=== PATIENT | male | born 1965 | race African-American/Black ===

== ENCOUNTER 2017-04-01 19:06 | Emergency (ER) | payer BC ==
[~2017-04-01] VITALS: Ht 167.6 cm; Wt 98.4 kg
[~2017-04-01 19:06] MED LIST: AMIO200T2 PO; ASPI-630 PO; CARV12.52 PO; LOSA25TA4 PO; MULT-505 PO; OMEG1CAP38 PO; OXYC-323 PO; SIMV40TA3 PO; SPIR25TA3 PO; WARF7.5T6 PO
[2017-04-01 19:39] LABS: BASO # 0.1 x10^3/uL (0.0-0.2); BASO % 1 % (0-3); EOS % 1 % (0-3); HEMATOCRIT 43.2 % (39.0-53.0); HEMOGLOBIN 14.4 g/dL (13.0-17.5); LYMPH # 2.2 x10^3/uL (1.0-4.8); LYMPH % 26 % (24-48); MEAN CORPUSCULAR HEMOGLOBIN 29 pg (25-35); MEAN CORPUSCULAR HGB CONC 33 g/dL (31-37); MEAN CORPUSCULAR VOLUME 87 fL (79-100); MONO % 12 % (0-9); NEUT % 60 % (31-73); PLATELET COUNT 206 x10^3/uL (140-400); RED BLOOD COUNT 4.96 x10^6/uL (4.30-5.70); RED CELL DISTRIBUTION WIDTH 15.9 % (11.5-14.5); WHITE BLOOD COUNT 8.8 x10^3/uL (4.0-11.0)
[2017-04-01 19:58] LABS: CALCIUM 9.3 mg/dL (8.5-10.1); CREATININE 1.5 mg/dL (0.7-1.3); GFR 59.2; POTASSIUM 4.5 mmol/L (3.5-5.1)
[2017-04-01 20:04] LABS: ALBUMIN 3.7 g/dL (3.4-5.0); ALBUMIN/GLOBULIN RATIO 0.9 (1.0-1.7); MAGNESIUM 2.2 mg/dL (1.8-2.4); TOTAL BILIRUBIN 0.7 mg/dL (0.2-1.0); TOTAL PROTEIN 7.7 g/dL (6.4-8.2)
[2017-04-01] MEDS ORDERED: FURO40TA4 PO (20:04)
[2017-04-01] MEDS ORDERED: SACU1TAB7 PO (20:06)
[2017-04-01 20:13] LABS: CKMB MASS < 0.5 ng/mL (0.0-3.6); CREATINE KINASE 159 U/L (39-308)
--- NOTE | 2017-04-01 20:41 | PHYS DOC ---
Past Medical History Past Medical History: High Cholesterol, Heart Disease, Hypertension Additional Past Medical Histor: "clot in heart wall per pt" Past Surgical History: Other Additional Past Surgical Histo: CABG (5 way) and Defibrillator Alcohol Use: None Drug Use: None Adult General Chief Complaint Chief Complaint: RAPID HEART RATE HPI HPI Patient is a 52 year old male who presents with complaint of rapid heart rate. Patient states that his symptoms started shortly prior to arrival. Patient states that he was taking out a heavy bag of trash when he noticed his heart rate had increased. Patient denies feeling lightheaded or having any associated chest pain. The patient has had history of myocardial infarction in 2007 and had cardiac bypass surgery shortly after his initial myocardial infarction. 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 Patient states that his pacemaker is a Medtronic device. Patient follows with Dr. Greer of cardiology at [facility]. Patient states that currently he feels better at rest. Patient does admit that he took his blood pressure medication shortly prior to onset of symptoms. Review of Systems Review of Systems Constitutional: Denies fever or chills [] Eyes: Denies change in visual acuity, redness, or eye pain [] HENT: Denies nasal congestion or sore throat [] Respiratory: Denies cough or shortness of breath [] Cardiovascular: Palpitations, denies chest pain[] GI: Denies abdominal pain, nausea, vomiting, bloody stools or diarrhea [] : Denies dysuria or hematuria [] Musculoskeletal: Denies back pain or joint pain [] Integument: Denies rash or skin lesions [] Neurologic: Denies headache, focal weakness or sensory changes [] All other systems were reviewed and found to be within normal limits, except as documented in this note. Allergies Allergies Allergies Coded Allergies Type Severity Reaction Last Updated Verified No Known Drug Allergies 11/02/14 No Physical Exam Physical Exam Constitutional: Alert, afebrile, no acute distress. [] HENT: Normocephalic, atraumatic, bilateral external ears normal, oropharynx moist, no oral exudates, nose normal. [] Eyes: PERRLA, EOMI, conjunctiva normal, no discharge. [] Neck: Normal range of motion, no tenderness, supple, no stridor. [] Cardiovascular: Tachycardia, regular rhythm, no murmur [] Lungs & Thorax: Bilateral breath sounds clear to auscultation [] Abdomen: Bowel sounds normal, soft, no tenderness, no masses, no pulsatile masses. [] Skin: Warm, dry, no erythema, no rash. [] Back: No tenderness, no CVA tenderness. [] Extremities: No tenderness, no cyanosis, no clubbing, ROM intact, no edema. [] Neurologic: Alert and oriented X 3, normal motor function, normal sensory function, no focal deficits noted. [] Current Patient Data Vital Signs Vital Signs Date Time Temp Pulse Resp B/P (MAP) Pulse Ox O2 Delivery O2 Flow Rate FiO2 04/01/17 19:10 98.5 121 22 115/55 (75) 100 Room Air 98.5 Lab Values Laboratory Tests Test 04/01/17 19:18 White Blood Count 8.8 x10^3/uL (4.0-11.0) Red Blood Count 4.96 x10^6/uL (4.30-5.70) Hemoglobin 14.4 g/dL (13.0-17.5) Hematocrit 43.2 % (39.0-53.0) Mean Corpuscular Volume 87 fL (79-100) Mean Corpuscular Hemoglobin 29 pg (25-35) Mean Corpuscular Hemoglobin Concent 33 g/dL (31-37) Red Cell Distribution Width 15.9 % (11.5-14.5) H Platelet Count 206 x10^3/uL (140-400) Neutrophils (%) (Auto) 60 % (31-73) Lymphocytes (%) (Auto) 26 % (24-48) Monocytes (%) (Auto) 12 % (0-9) H Eosinophils (%) (Auto) 1 % (0-3) Basophils (%) (Auto) 1 % (0-3) Neutrophils # (Auto) 5.3 x10^3uL (1.8-7.7) Lymphocytes # (Auto) 2.2 x10^3/uL (1.0-4.8) Monocytes # (Auto) 1.1 x10^3/uL (0.0-1.1) Eosinophils # (Auto) 0.1 x10^3/uL (0.0-0.7) Basophils # (Auto) 0.1 x10^3/uL (0.0-0.2) Sodium Level 139 mmol/L (136-145) Potassium Level 4.5 mmol/L (3.5-5.1) Chloride Level 105 mmol/L (98-107) Carbon Dioxide Level 28 mmol/L (21-32) Anion Gap 6 (6-14) Blood Urea Nitrogen 22 mg/dL (8-26) Creatinine 1.5 mg/dL (0.7-1.3) H Estimated GFR (Cockcroft-Gault) 59.2 BUN/Creatinine Ratio 15 (6-20) Glucose Level 96 mg/dL (70-99) Calcium Level 9.3 mg/dL (8.5-10.1) Magnesium Level 2.2 mg/dL (1.8-2.4) Total Bilirubin 0.7 mg/dL (0.2-1.0) Aspartate Amino Transferase (AST) 25 U/L (15-37) Alanine Aminotransferase (ALT) 27 U/L (16-63) Alkaline Phosphatase 57 U/L (46-116) Creatine Kinase 159 U/L (39-308) Creatine Kinase MB (Mass) < 0.5 ng/mL (0.0-3.6) Creatine Kinase MB Relative Index 0.3 % (0-4) Troponin I Quantitative < 0.017 ng/mL (0.000-0.055) HD-Fny-Y-Type Natriuretic Peptide 281 pg/mL (0-124) H Total Protein 7.7 g/dL (6.4-8.2) Albumin 3.7 g/dL (3.4-5.0) Albumin/Globulin Ratio 0.9 (1.0-1.7) L Laboratory Tests 04/01/17 19:18 Laboratory Tests 04/01/17 19:18 EKG EKG Interpreted by me: Heart rate 82, AV paced rhythm, no acute ST elevations[] Radiology/Procedures Radiology/Procedures One view AP chest x-ray interpreted by me: No infiltrates, no effusions, normal cardiac silhouette[] Course & Med Decision Making Course & Med Decision Making Pertinent Labs and Imaging studies reviewed. (See chart for details) The patient's heart rate improved at rest. Patient's pacemaker was interrogated and showed a maximal heart rate of the 143 bpm that recorded no significant cardiac events and no defibrillations. The patient states that he feels that his baseline state of health currently. The patient was ambulated in the emergency department and exhibited any increased heart rate up to 1:30 which improved at rest. The patient's symptoms appear consistent with hypovolemia. Patient remained asymptomatic during this episode. Recommended oral fluids for rehydration as well as rest at home. I spoke with Dr. Rodriguez of cardiology regarding patient's course and findings. He agreed with follow-up tomorrow with patient's electrical repairer and also offered that the patient could follow-up in his office if he had any difficulty securing an appointment tomorrow. Spoke with patient and patient's family regarding findings and plan of care and they were in agreement upon discharge. Advised return emergency department for any worsening symptoms. Dragon Disclaimer Dragon Disclaimer This electronic medical record was generated, in whole or in part, using a voice recognition dictation system. Departure Departure Impression: Primary Impression: Tachycardia, paroxysmal Additional Impression: Hypovolemia Disposition: 01 HOME, SELF-CARE Condition: IMPROVED Referrals: OLIVER PAZ (PCP) JEREMIAH RODRIGUEZ MD Patient Instructions: Dehydration, Adult, Palpitations Additional Instructions: Follow-up with your electrical repairer tomorrow for reevaluation. Be sure to drink plenty of fluids and do not exert herself until you have followed up with her electrical repairer for reevaluation. If you have any difficulty making an appointment with your electrical repairer, you may call the office of Dr. Rodriguez to make a follow -up appointment. Return to the emergency department for any worsening symptoms. Problem Qualifiers EUGENE RAO MD Apr 01, 2017 20:41
[2017-04-01 20:58] VITALS: BP 103/58
--- NOTE | 2017-04-02 00:55 | EKG ---
[facility] [address] [place] [address] Test Date: 2017-04-01 Test Time: 19:19:25 Pat Name: MITESH REBOLLAR Department: Room: Gender: M Java Designer: : 1965 Requested By: EUGENE RAO Order Number: [id number] Reading MD: Lauro Glover Measurements Intervals [place] Rate: 82 P: -84 [place]: 162 QRS: -81 QRSD: 210 T: 90 QT: 438 QTc: 515 Interpretive Statements SINUS RHYTHM LEFT ATRIAL ABNORMALITY ABNORMAL LEFT AXIS DEVIATION RIGHT BUNDLE BRANCH BLOCK QRS(T) CONTOUR ABNORMALITY CONSISTENT WITH LATERAL INFARCT AGE UNDETERMINED CONSISTENT WITH INFERIOR INFARCT POSSIBLY RECENT ABNORMAL ECG Electronically Signed On 04-08-2017 14:29:07 LINE PULLER by Lauro Glover
--- NOTE | 2017-04-02 07:56 | RAD ---
Chest x-ray Indication: Tachycardia. History of pacemaker 5 years ago. Technique: Portable AP upright chest x-ray Comparison: Previous study from 04/12/2016 Findings: Stable position of dual-lead left chest wall pacemaker with leads projecting over the heart. Heart is mildly enlarged in size. Lungs are clear. No pneumothorax or effusion. Visualized bony thorax is within normal limits. Impression: No acute cardiopulmonary process.
== END 2017-04-01 21:05 | disposition home or self-care (01) ==
LOC: ER 19:06
DX: I47.9 Paroxysmal tachycardia, unspecified (principal); E86.1 Hypovolemia; E78.00 Pure hypercholesterolemia, unspecified; I11.9 Hypertensive heart disease without heart failure; I25.2 Old myocardial infarction; Z95.0 Presence of cardiac pacemaker; Z95.1 Presence of aortocoronary bypass graft
CPT/HCPCS: 36415; 71010; 80053; 82553; 83735; 83880; 84484; 85025; 93005; 99285-25

== ENCOUNTER 2017-04-10 13:24 | Inpatient (IN) | payer BC ==
[~2017-04-10] VITALS: Ht 167.6 cm; Wt 101.2 kg
[2017-04-10] VITALS (12 sets, daily range): BP systolic 93–114; BP diastolic 58–72
[~2017-04-10 13:24] MED LIST changes: +FURO40TA4 PO; +SACU1TAB7 PO
--- NOTE | 2017-04-10 13:33 | PHYS DOC ---
Past Medical History Past Medical History: High Cholesterol, Heart Disease, Hypertension Additional Past Medical Histor: "clot in heart wall per pt" Past Surgical History: Other Additional Past Surgical Histo: CABG (5 way) and Defibrillator Alcohol Use: None Drug Use: None Adult General Chief Complaint Chief Complaint: Palpitations HPI HPI Patient is a 52 year old male presenting to the emergency department for evaluation of multiple defibrillation episodes that occurred over this morning. He was recently discharged from [facility] and sees Dr. García. Patient is on amio and took his meds this morning. Patient denies any pain or soa but he says that he can't stand any further defib episodes. On interrogation, he has been defibrillated 41 times. Patient is having runs of V. tach approximately 3- 4 beats in a row with one normal beat in between. He was palpitations but denies any other symptoms. Review of Systems Review of Systems Constitutional: Denies fever or chills [] Eyes: Denies change in visual acuity, redness, or eye pain [] HENT: Denies nasal congestion or sore throat [] Respiratory: Denies cough or shortness of breath [] Cardiovascular: No additional information not addressed in HPI [] GI: Denies abdominal pain, nausea, vomiting, bloody stools or diarrhea [] : Denies dysuria or hematuria [] Musculoskeletal: Denies back pain or joint pain [] Integument: Denies rash or skin lesions [] Neurologic: Denies headache, focal weakness or sensory changes [] All other systems were reviewed and found to be within normal limits, except as documented in this note. Current Medications Current Medications Current Medications Medications (Trade) Dose Ordered Sig/Lexi Start Time Stop Time Status Last Admin Dose Admin Amiodarone HCl 150 mg/Dextrose 103 ml @ 600 mls/hr 1X ONCE 04/10/17 13:45 04/10/17 13:55 DC 04/10/17 13:55 600 MLS/HR Amiodarone HCl 900 mg/Dextrose 518 ml @ 33.33 mls/ hr CONT PRN 04/10/17 13:45 04/10/17 19:44 04/10/17 14:05 33.33 MLS/HR Fentanyl Citrate (Fentanyl 2ml Vial) 100 mcg 1X ONCE 04/10/17 13:45 04/10/17 13:46 DC Allergies Allergies Allergies Coded Allergies Type Severity Reaction Last Updated Verified No Known Drug Allergies 11/02/14 No Physical Exam Physical Exam Constitutional: Well developed, well nourished, no acute distress, non-toxic appearance. [] HENT: Normocephalic, atraumatic, bilateral external ears normal, oropharynx moist, no oral exudates, nose normal. [] Eyes: PERRLA, EOMI, conjunctiva normal, no discharge. [] Neck: Normal range of motion, no tenderness, supple, no stridor. [] Cardiovascular:Heart rate irregular and tachycardic Lungs & Thorax: Bilateral breath sounds clear to auscultation [] Abdomen: Bowel sounds normal, soft, no tenderness, no masses, no pulsatile masses. [] Skin: Warm, dry, no erythema, no rash. [] Back: No tenderness, no CVA tenderness. [] Extremities: No tenderness, no cyanosis, no clubbing, ROM intact, no edema. [] Neurologic: Alert and oriented X 3, normal motor function, normal sensory function, no focal deficits noted. [] Current Patient Data Vital Signs Vital Signs Date Time Temp Pulse Resp B/P (MAP) Pulse Ox O2 Delivery O2 Flow Rate FiO2 04/10/17 14:15 96 16 129/63 (85) 97 Room Air 04/10/17 13:24 98.1 98.1 Lab Values Laboratory Tests Test 04/10/17 13:20 04/10/17 13:36 04/10/17 13:41 04/10/17 14:10 White Blood Count 12.1 x10^3/uL (4.0-11.0) H Red Blood Count 5.08 x10^6/uL (4.30-5.70) Hemoglobin 14.4 g/dL (13.0-17.5) Hematocrit 44.4 % (39.0-53.0) Mean Corpuscular Volume 87 fL (79-100) Mean Corpuscular Hemoglobin 28 pg (25-35) Mean Corpuscular Hemoglobin Concent 32 g/dL (31-37) Red Cell Distribution Width 15.8 % (11.5-14.5) H Platelet Count 281 x10^3/uL (140-400) Neutrophils (%) (Auto) 60 % (31-73) Lymphocytes (%) (Auto) 26 % (24-48) Monocytes (%) (Auto) 13 % (0-9) H Eosinophils (%) (Auto) 1 % (0-3) Basophils (%) (Auto) 1 % (0-3) Neutrophils # (Auto) 7.3 x10^3uL (1.8-7.7) Lymphocytes # (Auto) 3.1 x10^3/uL (1.0-4.8) Monocytes # (Auto) 1.5 x10^3/uL (0.0-1.1) H Eosinophils # (Auto) 0.1 x10^3/uL (0.0-0.7) Basophils # (Auto) 0.1 x10^3/uL (0.0-0.2) Prothrombin Time 24.3 SEC (11.7-14.0) H Prothrombin Time INR 2.4 (0.8-1.1) H PTT 39 SEC (24-38) H POC Troponin I 0.45 ng/ml (<0.08) POC Hemoglobin 15.0 g/dL (14-18) POC Hematocrit 44 % (37-52) POC Sodium 139 mmol/L (135-145) POC Potassium 5.1 mmol/L (3.5-5.0) H POC Chloride 105 mmol/L (98-110) POC Total CO2 25 mmol/L (23-32) Anion Gap 15 mmol/L (6-14) H 12 (6-14) POC Blood Urea Nitrogen 28 mg/dL (8-26) H POC Creatinine 1.7 mg/dL (0.5-1.4) H Glucose Level 203 mg/dL (70-99) H 218 mg/dL (70-99) H POC Ionized Calcium (Anjali) 1.09 mmol/L (1.13-1.32) L Sodium Level 138 mmol/L (136-145) Potassium Level 4.6 mmol/L (3.5-5.1) Chloride Level 101 mmol/L (98-107) Carbon Dioxide Level 25 mmol/L (21-32) Blood Urea Nitrogen 25 mg/dL (8-26) Creatinine 1.7 mg/dL (0.7-1.3) H Estimated GFR (Cockcroft-Gault) 51.3 BUN/Creatinine Ratio 15 (6-20) Calcium Level 8.8 mg/dL (8.5-10.1) Magnesium Level 2.2 mg/dL (1.8-2.4) Total Bilirubin 0.6 mg/dL (0.2-1.0) Direct Bilirubin 0.2 mg/dL (0.0-0.2) Aspartate Amino Transferase (AST) 31 U/L (15-37) Alanine Aminotransferase (ALT) 32 U/L (16-63) Alkaline Phosphatase 65 U/L (46-116) Creatine Kinase 232 U/L (39-308) Troponin I Quantitative 1.515 ng/mL (0.000-0.055) TY-Ocy-N-Type Natriuretic Peptide 292 pg/mL (0-124) H Total Protein 7.7 g/dL (6.4-8.2) Albumin 3.7 g/dL (3.4-5.0) Albumin/Globulin Ratio 0.9 (1.0-1.7) L Laboratory Tests 04/10/17 13:20 Laboratory Tests 04/10/17 13:41 04/10/17 14:10 EKG EKG Runs of V. tach with one normal gait in between Radiology/Procedures Radiology/Procedures EXAM: CHEST 1 VIEW History: Chest pain, defibrillator failure COMPARISON: 04/01/2017 TECHNIQUE: Single portable radiograph of the chest FINDINGS: Low lung volumes and technique accentuates heart size and pulmonary vascularity. Mild cardiomegaly. Minimal prominent appearing bilateral interstitial lung markings. Left-sided cardiac pacer ICD again identified IMPRESSION: Probable mild congestive changes. DICTATED and SIGNED BY: MARIA DEL CARMEN DENT MD DATE: 04/10/17 0571 Course & Med Decision Making Course & Med Decision Making Patient was put on amiodarone bolus and drip and his rate did become more regular and he had no further defibrillation episodes in the emergency department. Quite about being transferred to [facility] but I told him I do not believe he is stable enough for an endometritis and he did consent to be admitted to the hospital here [place]. Admitted in critical care to the ICU. Critical care time of 35 minutes. Dragon Disclaimer Dragon Disclaimer This electronic medical record was generated, in whole or in part, using a voice recognition dictation system. Departure Departure Impression: Primary Impression: V-tach Additional Impression: Elevated troponin Disposition: ADMITTED INPATIENT Admitting Physician: Koduri, Vinaya Condition: CRITICAL Referrals: OLIVER PAZ (PCP) Problem Qualifiers ASPEN MCMANUS DO Apr 10, 2017 13:33
[2017-04-10 13:45] LABS: BASO # 0.1 x10^3/uL (0.0-0.2); BASO % 1 % (0-3); EOS % 1 % (0-3); HEMATOCRIT 44.4 % (39.0-53.0); HEMOGLOBIN 14.4 g/dL (13.0-17.5); LYMPH # 3.1 x10^3/uL (1.0-4.8); LYMPH % 26 % (24-48); MEAN CORPUSCULAR HEMOGLOBIN 28 pg (25-35); MEAN CORPUSCULAR HGB CONC 32 g/dL (31-37); MEAN CORPUSCULAR VOLUME 87 fL (79-100); MONO % 13 % (0-9); NEUT % 60 % (31-73); PLATELET COUNT 281 x10^3/uL (140-400); RED BLOOD COUNT 5.08 x10^6/uL (4.30-5.70); RED CELL DISTRIBUTION WIDTH 15.8 % (11.5-14.5); WHITE BLOOD COUNT 12.1 x10^3/uL (4.0-11.0)
[2017-04-10] MEDS ORDERED: fentaNYL PF VIAL 100 MCG/2 ML VIAL IV ONE (13:45)
[2017-04-10] MEDS ORDERED: AMIODARONE 150 MG in IV DEXTROSE 5% 100 ML IV ONE (13:45)
[2017-04-10] MEDS ORDERED: AMIODARONE 900 MG in IV DEXTROSE 5% 500 ML IV PRN ×2 (13:45→19:44)
[2017-04-10 13:46] LABS: POTASSIUM ISTAT 5.1 mmol/L (3.5-5.0)
[2017-04-10 13:54] LABS: INR 2.4 (0.8-1.1); PROTHROMBIN TIME PATIENT 24.3 SEC (11.7-14.0)
--- NOTE | 2017-04-10 14:02 | RAD ---
EXAM: CHEST 1 VIEW History: Chest pain, defibrillator failure COMPARISON: 04/01/2017 TECHNIQUE: Single portable radiograph of the chest FINDINGS: Low lung volumes and technique accentuates heart size and pulmonary vascularity. Mild cardiomegaly. Minimal prominent appearing bilateral interstitial lung markings. Left-sided cardiac pacer ICD again identified IMPRESSION: Probable mild congestive changes.
[2017-04-10 14:43] LABS: ALBUMIN 3.7 g/dL (3.4-5.0); ALBUMIN/GLOBULIN RATIO 0.9 (1.0-1.7); CALCIUM 8.8 mg/dL (8.5-10.1); CREATININE 1.7 mg/dL (0.7-1.3); GFR 51.3; MAGNESIUM 2.2 mg/dL (1.8-2.4); POTASSIUM 4.6 mmol/L (3.5-5.1); TOTAL BILIRUBIN 0.6 mg/dL (0.2-1.0); TOTAL PROTEIN 7.7 g/dL (6.4-8.2)
[2017-04-10] MEDS ORDERED: ONDANSETRON PF 4 MG/2 ML VIAL. IV PRN (14:45)
[2017-04-10] MEDS ORDERED: fentaNYL PF VIAL 100 MCG/2 ML VIAL IV PRN (14:45)
[2017-04-10 14:58] LABS: ALBUMIN 3.7 g/dL (3.4-5.0); DIRECT BILIRUBIN 0.2 mg/dL (0.0-0.2); TOTAL BILIRUBIN 0.6 mg/dL (0.2-1.0); TOTAL PROTEIN 7.7 g/dL (6.4-8.2)
--- NOTE | 2017-04-10 15:01 | EKG ---
[facility] [address] [place] [address] Test Date: 2017-04-10 Test Time: 13:25:14 Pat Name: MITESH REBOLLAR Department: Room: Gender: M Hospice Community Liaison: KATIE : 1965 Requested By: ASPEN MCMANUS Order Number: [id number] Reading MD: Measurements Intervals [place] Rate: 106 P: 78 AR: 166 QRS: -114 QRSD: 244 T: 35 QT: 382 QTc: 509 Interpretive Statements SINUS TACHYCARDIA COMPLEX(ES) WITH ABERRANT INTRAVENTRICULAR CONDUCTION ATRIAL PREMATURE COMPLEX(ES);ATRIAL ESCAPE COMPLEX(ES) RIGHT ATRIAL ENLARGEMENT ABNORMAL RIGHT SUPERIOR AXIS DEVIATION NON SPECIFIC INTRAVENTRICULAR BLOCK RVH WITH REPOLARIZATION ABNORMALITY QRS(T) CONTOUR ABNORMALITY CONSISTENT WITH ANTERIOR INFARCT;AGE UNDETERMINED CONSISTENT WITH INFEROLATERAL INFARCT AGE UNDETERMINED;ABNORMAL ECG RI6.01;No previous ECG available for comparison
--- NOTE | 2017-04-10 15:22 | PDOC2 ---
CARDIAC CONSULT DATE OF CONSULT Date of Consult DATE: 04/10/17 TIME: 14:37 REASON FOR CONSULT Reason for Consult: Vtach REFERRING PHYSICIAN Referring Physician: Christina SOURCE Source: Chart review, Patient HISTORY OF PRESENT ILLNESS HISTORY OF PRESENT ILLNESS This is a pleasant 52 yo male admitted for complains of palpitations. He sees Dr. García at [facility]. He was at home and started not feel ok, sat down then felt palpitations then started seeing stars then got shocked by his AICD. He was shocked multiple times. He then was brought to ED and his device was interrogated and noted that he had 41 total shocks with 24 shock terminated episodes of intermittent Vtach and also Vfib in [facility] 18 are sustained episodes. He was then started on amiodarone IV protocol in ED. Prior to this happening he denies any CP, SOA and he was acutally doing well in the last few days. He is significant for ICM with medtronic AICD. He was at [facility] and was admitted over there due to fast HR on . Accdg to him and his he was noted with fast afib but per chart review he was noted with VT storm. His device was adjusted from 180 to 150 on his V tach zone as prior to this he had 1.5 hours of slow Vtach occurred while taking out the trash. Ultimately he was started on mexilitine at 150 mg q8h after being evaluated by EP with his regular amiodarone dosing at 200 mg daily. He is notable for Chronic systolic CHF NYHA 1-2, CABG x5 in 2007. He had stress test at that time which showed no ischemia. His EF was repeated last week and noted that his EF is at 20% which is virtually unchanged from his previous last yr with noted moderate to severe MR, aortic aneurysm at 4.9 cm and 4.[address] He was also noted with recurrence of LV apical thrombus which also prompted restart of his coumadin. He is wanting to transfer to [facility] where his power plant operators supervisor is at and I did have a significant discussion with him and his and agreed to stay. Presently he is doing ok and he is just ancious at this time that he may just get shocked again. PAST MEDICAL HISTORY Past Medical History Cardiovascular: CAD, HTN, Hyperlipidemia, mural thrombus - diagnosed 2 - 3 years ago - treated with warfarin; cardiomyopathy/CHF, AFIB, valvular insufficiency Pulmonary: No pertinent hx CENTRAL NERVOUS SYSTEM: Other (none) GI: No pertinent hx Heme/Onc: No pertinent hx Hepatobiliary: No pertinent hx Psych: No pertinent hx Musculoskeletal: No pain Rheumatologic: No pertinent hx Infectious disease: No pertinent hx ENT: No pertinent hx Renal/: No pertinent hx Endocrine: No pertinent hx Dermatology: No pertinent hx PAST SURGICAL HISTORY Past Surgical History Cholecystectomy, CABG ([address] Jose Rafael Fernando @ [facility]), Other (Medtronic ICD implantation - 2007) FAMILY HISTORY Family History noncontributory SOCIAL HISTORY Social History Smoke: No ALCOHOL: none Drugs: None Lives: with Family CURRENT MEDICATIONS CURRENT MEDICATIONS Current Medications Medications (Trade) Dose Ordered Sig/Lexi Route PRN Reason Start Time Stop Time Status Last Admin Dose Admin Amiodarone HCl 150 mg/Dextrose 103 ml @ 600 mls/hr 1X ONCE IV 04/10/17 13:45 04/10/17 13:55 DC 04/10/17 13:55 Amiodarone HCl 900 mg/Dextrose 518 ml @ 33.33 mls/ hr CONT PRN IV SEE I/O RECORD 04/10/17 13:45 04/10/17 19:44 04/10/17 14:05 ALLERGIES ALLERGIES: Coded Allergies: No Known Drug Allergies (Unverified , 11/02/14) ROS Review of System 14 point ROS evaluated with pertinent positives noted per HPI PHYSICAL EXAM General: Alert, Oriented X3, Cooperative, No acute distress HEENT: Atraumatic, Mucous membr. moist/pink Lungs: Clear to auscultation, Normal air movement Heart: Regular rate (Paced), Normal S1, Normal S2, Other (4/6 systolic murmur to apex) Abdomen: Soft, No tenderness, Other (truncal obesity) Extremities: No cyanosis, Other (trace LE edema) Skin: No breakdown, No significant lesion Neuro: Normal speech, Sensation intact Psych/Mental Status: Mental status NL, Mood NL MUSCULOSKELETAL: Osteoarthritic changes both hands VITALS VITALS Vital Signs Date Time Temp Pulse Resp B/P (MAP) Pulse Ox O2 Delivery O2 Flow Rate FiO2 04/10/17 13:55 96 134/73 04/10/17 13:24 98.1 18 95 Room Air 98.1 LABS Lab: Laboratory Tests Test 04/10/17 13:20 04/10/17 13:36 04/10/17 13:41 White Blood Count 12.1 x10^3/uL (4.0-11.0) Red Blood Count 5.08 x10^6/uL (4.30-5.70) Hemoglobin 14.4 g/dL (13.0-17.5) Hematocrit 44.4 % (39.0-53.0) Mean Corpuscular Volume 87 fL (79-100) Mean Corpuscular Hemoglobin 28 pg (25-35) Mean Corpuscular Hemoglobin Concent 32 g/dL (31-37) Red Cell Distribution Width 15.8 % (11.5-14.5) Platelet Count 281 x10^3/uL (140-400) Neutrophils (%) (Auto) 60 % (31-73) Lymphocytes (%) (Auto) 26 % (24-48) Monocytes (%) (Auto) 13 % (0-9) Eosinophils (%) (Auto) 1 % (0-3) Basophils (%) (Auto) 1 % (0-3) Neutrophils # (Auto) 7.3 x10^3uL (1.8-7.7) Lymphocytes # (Auto) 3.1 x10^3/uL (1.0-4.8) Monocytes # (Auto) 1.5 x10^3/uL (0.0-1.1) Eosinophils # (Auto) 0.1 x10^3/uL (0.0-0.7) Basophils # (Auto) 0.1 x10^3/uL (0.0-0.2) Prothrombin Time 24.3 SEC (11.7-14.0) Prothromb Time International Ratio 2.4 (0.8-1.1) Activated Partial Thromboplast Time 39 SEC (24-38) Bedside Troponin I 0.45 ng/ml (<0.08) Bedside Hemoglobin 15.0 g/dL (14-18) Bedside Hematocrit 44 % (37-52) Bedside Sodium 139 mmol/L (135-145) Bedside Potassium 5.1 mmol/L (3.5-5.0) Bedside Chloride 105 mmol/L (98-110) Bedside Total CO2 25 mmol/L (23-32) Anion Gap 15 mmol/L (6-14) Bedside Blood Urea Nitrogen 28 mg/dL (8-26) Bedside Creatinine 1.7 mg/dL (0.5-1.4) Glucose Level 203 mg/dL (70-99) Bedside Ionized Calcium (Anjali) 1.09 mmol/L (1.13-1.32) ASSESSMENT/PLAN ASSESSMENT/PLAN 1. VT storm with ICD therapy: despite mexilitine start last wk also due to VT storm and low dose amiodarone 2. AICD in situ: Medtronic. 41 shocks total and 15 failed with 18 treatment for Vtach/Vfib for sustained episodes and with 5 VT episodes accelerated to Vfib per interrogation He is almost 100% paced 3. NSTEMI: 1.5 due to shock therapy 4. Combined ICM/NICM: stress test last wk revealed no ischemia. EF 20%. On home entresto 5. Moderate to severe MR 6. Ascending aortic aneurysm: 4.9 cm 7. CAD; CABG x5, no prior LHC since then 8. HTN: controlled 9. HLP 10. PAFIB 11. LV thrombus: noted last week echo. restarted on coumadin last week 12. Chronic systolic CHF NYHA 1-2, appears compensated. 13. CKD3?: Cr 1.7 Recommendations 1. Recent stress test shows no reversible defect but ultimately LHC is a consideration given his frequent VT storm despite medications, will discuss with primary power plant operators supervisor 2. He is also a candidate for VT ablation. At this time continue with mexilitine and amiodarone drip protocol. ASA 3. Check Mg and replace as warranted with parameter of K and Mg at 4.0 and 2.0 respectively 4. Will change his low dose coreg to metoprolol for better control 5. Monitor LFTs. INR at 2.4 and will hold coumadin for today if LHC is to proceed. 6. Discussed treatment plan with pt and spouse. Will continue to stabilize overnight and if no LHC is planned then will plan for facility transfer tomorrow for potential ablation. Evaluation time: 45 minutes Problems: JEAN-PAUL RODRIGEZ APRN Apr 10, 2017 15:22
[2017-04-10] MEDS ORDERED: METOPROLOL SUCC 24HR ER 25 MG TAB.ER.24H. PO ONE (15:30)
[2017-04-10] MEDS ORDERED: FURO40TA4 PO (16:04)
[2017-04-10] MEDS ORDERED: MEXI150C PO (16:04)
[2017-04-10] MEDS ORDERED: WARF3TAB7 PO (16:04)
[2017-04-10] MEDS ORDERED: CARV3.122 PO (16:04)
[2017-04-10] MEDS ORDERED: ASPI-630 PO (16:04)
[2017-04-10] MEDS ORDERED: MULT-246 PO (16:04)
[2017-04-10] MEDS ORDERED: SIMV40TA3 PO (16:04)
[2017-04-10] MEDS ORDERED: SPIR25TA3 PO (16:04)
[2017-04-10] MEDS: MEXILETINE HCL 200 MG CAPSULE PO SCH ×2 (16:38→21:05)
[2017-04-10] MEDS ORDERED: ATORVASTATIN CALCIUM 20 MG TABLET PO SCH (21:00)
[2017-04-11] VITALS (19 sets, daily range): BP systolic 82–111; BP diastolic 58–81
[2017-04-11 03:50] LABS: BASO # 0.1 x10^3/uL (0.0-0.2); BASO % 1 % (0-3); EOS % 1 % (0-3); HEMATOCRIT 41.7 % (39.0-53.0); HEMOGLOBIN 13.8 g/dL (13.0-17.5); LYMPH # 1.8 x10^3/uL (1.0-4.8); LYMPH % 16 % (24-48); MEAN CORPUSCULAR HEMOGLOBIN 29 pg (25-35); MEAN CORPUSCULAR HGB CONC 33 g/dL (31-37); MEAN CORPUSCULAR VOLUME 87 fL (79-100); MONO % 14 % (0-9); NEUT % 69 % (31-73); PLATELET COUNT 229 x10^3/uL (140-400); RED BLOOD COUNT 4.81 x10^6/uL (4.30-5.70); RED CELL DISTRIBUTION WIDTH 15.6 % (11.5-14.5); WHITE BLOOD COUNT 11.3 x10^3/uL (4.0-11.0)
[2017-04-11 04:50] LABS: CALCIUM 8.7 mg/dL (8.5-10.1); CREATININE 1.4 mg/dL (0.7-1.3); GFR 64.1; POTASSIUM 4.6 mmol/L (3.5-5.1)
[2017-04-11 04:56] LABS: INR 2.3 (0.8-1.1); PROTHROMBIN TIME PATIENT 23.6 SEC (11.7-14.0)
[2017-04-11] MEDS: MEXILETINE HCL 200 MG CAPSULE PO SCH ×2 (06:00→14:05)
[2017-04-11] MEDS ORDERED: METOPROLOL SUCC 24HR ER 50 MG TAB.ER.24H. PO SCH (09:00)
[2017-04-11] MEDS ORDERED: FUROSEMIDE 40 MG TABLET. PO SCH ×2 (09:00→11:00)
[2017-04-11] MEDS ORDERED: ASPIRIN CHEWABLE 81 MG TABLET. PO SCH ×2 (09:00→11:00)
[2017-04-11] MEDS ORDERED: LIDOCAINE 2% 20 ML VIAL. ONE (09:10)
[2017-04-11] MEDS ORDERED: IODIXANOL 320 MG/ML 100 ML VIAL. ONE ×3 (09:10→12:06)
[2017-04-11] MEDS ORDERED: ALPRAZolam 0.25 MG TABLET PO PRN (10:00)
--- NOTE | 2017-04-11 10:21 | PDOC ---
Provider Note Provider Note Pt seen in ICU,H&P dictated. #[id number] ABI HERNANDES MD Apr 11, 2017 10:21
[2017-04-11] MEDS: SACUBITRIL/VALSARTAN 49/51MG TABLET. PO SCH ×2 (10:30→14:05)
[2017-04-11] MEDS ORDERED: MULTIVITAMIN with MINERAL TABLET. PO SCH (10:30)
[2017-04-11] MEDS ORDERED: OMEGA-3 FATTY ACIDS/FISH OIL 1,000 MG CAPSULE. PO SCH (10:30)
--- NOTE | 2017-04-11 10:57 | HP ---
ADMIT DATE: 04/10/2017 ATTENDING PHYSICIAN: Dr. Hernandes. PRIMARY CARE PHYSICIAN: Dr. Crooks. HISTORY OF PRESENT ILLNESS: The patient is a 52-year-old male. He sees Dr. García at [facility]. He was recently at [facility] last week for cardiac arrhythmias. They adjust some medications and told he needs a battery change for AICD. At home, he was noticed with some palpitations, noted AICD shocking multiple times, then he came to the Emergency Room and he had a total of 41 shocks and 24 shocks terminated his intermittent ventricular tachycardia and also V-fib. The patient was started on amiodarone, was admitted to the ICU and the patient is seen by Cardiology. He is going to have cardiac cath as well as possibly battery change for AICD. The patient is on amiodarone as well as mexiletine for cardiac arrhythmias. The patient is feeling better today, but his troponin went up to 9. PAST MEDICAL HISTORY: Coronary artery disease, has cardiomyopathy, ejection fraction 15%; AFib, on anticoagulation, Coumadin; had a bypass surgery in [address] Fernando, AICD in 2007 and gallbladder surgery in 2015. ALLERGIES: No allergies. MEDICATIONS: The patient is on Coumadin 3 mg daily, amiodarone 200 mg daily, aspirin 81 mg daily, Coreg 3.125 twice a day, Lasix 40 mg daily, mexiletine 150 mg 3 times daily, vitamin 1 daily, omega 3 daily, Entresto 49/51 daily, simvastatin 40 mg at bedtime, spironolactone 25 mg half a tablet daily. PERSONAL HISTORY: No history of smoking, alcohol, drug abuse. FAMILY HISTORY: Unremarkable. REVIEW OF SYSTEMS: CARDIAC: Palpitations yesterday, AICD was discharging. GASTROINTESTINAL: No nausea or vomiting. NEUROLOGICAL: No weakness. The rest of the system reviewed and negative. PHYSICAL EXAMINATION: GENERAL: The patient is not in any distress. VITAL SIGNS: Temperature 98, pulse 108, respirations 18, blood pressure 145/100, 95% on room air. HEENT: Head is atraumatic. Pupils equal. Oral cavity: No congestion. NECK: Supple. Thyroid not enlarged, JVD not elevated. CHEST: Symmetrical, scar of heart surgery. AICD at left-sided chest. CARDIOVASCULAR: S1, S2. LUNGS: Clear to auscultation. No wheezing. ABDOMEN: Soft, no mass palpable. EXTERNAL GENITALIA: No Munoz. RECTAL: Deferred. EXTREMITIES: No calf tenderness, no edema. NEUROLOGIC: Moving all extremities. No focal deficit noted. LABORATORY DATA: Shows a white count of 12, hemoglobin 14, platelets of 281. INR is 2.4. Electrolytes show sodium 139, potassium 5.1, chloride 105, bicarbonate 25, BUN 28, creatinine 1.7 and BNP 292. Troponin peaked to 9.7. LFTs were normal. Creatinine came down to 1.4, magnesium 2.3. INR is 2.4. Chest x-ray: Mild CHF. EKG, ventricular tachycardia. FINAL IMPRESSION: 1. Ventricular tachycardia and ventricular fibrillation. The patient had an automatic implantable cardioverter-defibrillator, shocked him at least 40 times yesterday. 2. Elevated troponin, possible non-ST elevation myocardial infarction. 3. Coronary artery disease, history of cardiomyopathy, ejection fraction 15%. 4. History of heart bypass surgery. 5. History of automatic implantable cardioverter-defibrillator. 6. Mild renal insufficiency, stage 3. 7. Chronic atrial fibrillation, on anticoagulation, Coumadin. PLAN: At this time, he was on IV amiodarone, seen by Cardiology, going for possible cardiac catheterization and also discussion about replacement of the battery for AICD. Further recommendations to follow. ABI HERNANDES MD DR: JEAN/denice JOB#: [id number] / [id number] OLIVER Mccurdy
[2017-04-11] MEDS ORDERED: VERAPAMIL 5 MG/2 ML VIAL. ONE (11:00)
[2017-04-11] MEDS ORDERED: SPIRONOLACTONE 25 MG TABLET PO SCH (11:00)
[2017-04-11] MEDS ORDERED: MIDAZOLAM HCL/PF 2 MG/2 ML VIAL. ONE ×2 (11:00→11:20)
[2017-04-11] MEDS ORDERED: AMIODARONE HCL 200 MG TABLET. PO SCH ×3 (11:00→16:00)
[2017-04-11] MEDS ORDERED: NITROGLYCERIN 200 MCG/2 ML SYRINGE FOR CATH/VASC LAB. ONE (11:00)
[2017-04-11] MEDS ORDERED: HEPARIN for IV BOLUS 10,000 UNIT/10 ML VIAL. ONE (11:00)
[2017-04-11] MEDS ORDERED: fentaNYL PF VIAL 100 MCG/2 ML VIAL ONE (11:00)
--- NOTE | 2017-04-11 11:16 | PDOC ---
MODERATE SEDATION ASSESSMENT RISKS/ALTERNATIVES Risks/Alternatives Risks and alternatives of this type of sedation and procedure discussed with: RISK/ALTERNATIVES: Patient H & P ON CHART H & P H & P on chart and reviewed for co-morbid conditions and appropriate labs. H&P ON CHART: Yes STATUS PREG STATUS ASSESSED: N/A MEDS/ALLERGIES REVIEWED Meds/Allergies Reviewed Medications and Allergies including time and route of recently administered narcotics and sedatives. MEDS/ALLERGIES REVIEWED: Yes ASA RATING ASA RATING: II AIRWAY ASSESSMENT Airway Assessment Airway patency, oral function limitations, presence of caps, crowns, dentures, partials, and ability to extend neck assessed. AIRWAY ASSESSMENT: Yes MALLAMPATI SCORE MALLAMPATI SCORE: II PRE-SEDATION ASSESSMENT PRE-SEDATION ASSESSMENT: Yes JEREMIAH RODRIGUEZ MD Apr 11, 2017 11:16
[2017-04-11] MEDS ORDERED: NITROGLYCERIN 200 MCG/2 ML SYRINGE FOR CATH/VASC LAB. IART ONE (11:45)
[2017-04-11] MEDS ORDERED: CONTRAST GIVEN MC PRN (11:45)
[2017-04-11] MEDS ORDERED: LIDOCAINE 2% 20 ML VIAL. IJ ONE (11:45)
[2017-04-11] MEDS ORDERED: HEPARIN for IV BOLUS 10,000 UNIT/10 ML VIAL. IART ONE (11:45)
[2017-04-11] MEDS ORDERED: MIDAZOLAM HCL/PF 2 MG/2 ML VIAL. IV ONE (11:45)
[2017-04-11] MEDS ORDERED: VERAPAMIL 5 MG/2 ML VIAL. IART ONE (11:45)
[2017-04-11] MEDS ORDERED: IODIXANOL 320 MG/ML 100 ML VIAL. IART ONE (11:45)
[2017-04-11] MEDS ORDERED: fentaNYL PF VIAL 100 MCG/2 ML VIAL IV ONE (11:45)
[2017-04-11] MEDS ORDERED: IV 1/2 NORMAL SALINE 1,000 ML IV SCH (12:59)
[2017-04-11] MEDS ORDERED: NITROGLYCERIN SUBLINGUAL 0.4 MG BOTTLE OF 25. SL PRN (13:00)
[2017-04-11] MEDS ORDERED: NON FORMULARY ITEM (Mexiletine Hcl 150 MG) PO SCH (14:00)
--- NOTE | 2017-04-11 15:33 | CARD ---
APPROVED REPORT Procedure(s) performed: Left heart catheterization, selective coronary angiography and selective christopher ography of the bypass grafts via left transradial approach Sedation Time: 65 min INDICATION The indication(s) include : Recurrent ventricular tachycardia in a patient with coronary artery disea se and ischemic cardiomyopathy. PROCEDURE NARRATIVE After explaining the risks, benefits and alternative options, informed consent was obtained from candelaria ent. Patient was brought to the cardiac Rn Lvn and his left wrist was prepped and draped in the usu al fashion after confirming a positive modified Kaushik's test. Arterial access was obtained in the lef t radial artery and 6 [place] sheath was inserted. 6 [place] JR4 catheter was used to perform selective angiography of the left internal mammary artery graft to the left anterior descending artery, sequen tial saphenous vein graft to the diagonal branch/first and second obtuse marginal branches. 6 [place] multipurpose catheter was used to perform selective angiography of the saphenous vein graft to the ri ght coronary artery. 6 [place] JL4 catheter was used to perform selective angiographic the left dacosta ry artery. After several attempts at engaging the right coronary artery using 6 [place] JR4, 6 [place] AR-1, 6 [place] multipurpose, 6 [place] AL-1 and 6 [place] AL 2 catheters were unsuccessful, root aortog abdifatah was performed that showed possible occlusion of the right coronary artery. LVEDP and transaortic gradients were measured. Patient tolerated the procedure well. Hemostasis was achieved using TR band. There were no immediate competitions. The following findings were noted. FINDINGS 1. Hemodynamics: Left ventricle end-diastolic pressure 33 mmHg. No pullback gradient across the aor tic valve. 2. Coronary and bypass graft angiography: a. The left main coronary artery arose from the left sinus of Valsalva, gave rise to the left anteri or descending, ramus intermedius and left circumflex arteries and did not show any significant stenos is. b. The left anterior descending artery showed 80% stenosis in the proximal to midsegment. c. The ramus intermedius artery showed 30% stenosis in the proximal segment. d. The left circumflex artery is chronically occluded in the proximal segment. e. The right coronary artery seems to be chronically occluded proximally. f. The saphenous vein graft to the right coronary artery was widely patent. g. The sequential saphenous vein graft to the diagonal branch, first and second obtuse marginal branc hes was widely patent. h. The left internal mammary artery graft the left anterior descending artery was widely patent. Conclusion Coronary artery disease s/p coronary artery bypass surgery with patent grafts as described above with out any lesions that needed intervention. Recommendations Optimization of medical therapy for coronary artery disease and ischemic cardiomyopathy. Electrophysiology team referral for possible ablation of ventricular tachycardia.
[2017-04-11] MEDS ORDERED: WARFARIN 3 MG TABLET. PO SCH (16:00)
--- NOTE | 2017-04-11 16:41 | PDOC ---
Provider Note Provider Note Cardiac catheterization showed patent grafts without any lesions that needed intervention. Patient's clinical presentation discussed with Dr. Fatima, patient's gasfitter. Consensus for transfering patient to [facility] for VT ablation tomorrow. Options discussed with family - they're agreeable. Continue current medications including amiodarone and mexiletine. JEREMIAH RODRIGUEZ MD Apr 11, 2017 16:41
[2017-04-11] MEDS ORDERED: SIMVASTATIN 40 MG TABLET. PO SCH (21:00)
[2017-04-11] MEDS ORDERED: CARVEDILOL 3.125 MG TABLET. PO SCH (21:00)
--- NOTE | 2017-04-12 15:22 | PDOC ---
Provider Note Provider Note Discharge summary dictated. #[id number] ABI HERNANDES MD Apr 12, 2017 15:22
--- NOTE | 2017-04-12 17:24 | DS ---
DATE OF DISCHARGE: 04/11/2017 REASON FOR ADMISSION TO THE HOSPITAL: Ventricular tachycardia, V-fib. The patient was shocked by AICD. CONSULTATIONS: Dr. Glover. PROCEDURES DONE: Cardiac catheterization. COMPLICATIONS NOTED: None. HOSPITAL COURSE: The patient is a 52-year-old male with history of severe coronary artery disease, had a bypass surgery, AICD, had been on mexiletine and amiodarone for cardiac arrhythmias. Also on Coumadin for atrial fibrillation. He was shocked at home by a couple of times, was brought to the hospital by AICD and 43 events. His troponin was elevated to 9. The patient had a bypass surgery. He was taken to cardiac cath and it shows patent grafts and his ejection fraction was supposed to be low around 15%. Because of ventricular arrhythmias, it was felt that he needs ablation, was transferred to [facility] for ventricular fibrillation ablation for interpretation. FINAL DIAGNOSES: 1. Ventricular tachycardia. 2. Automatic implantable cardioverter defibrillator discharged 43 times. 3. Coronary artery disease, previous bypass surgery, cardiac catheterization, no significant blockages, patent grafts. 4. History of ischemic cardiomyopathy. The patient is transferred to for ablation of ventricular tachycardia. ABI HERNANDES MD DR: JEAN/denice JOB#: [id number] / [id number] OLIVER Mccurdy
== END 2017-04-11 18:03 | disposition short-term general hospital (02) | DRG 281 ==
LOC: ER 13:24 → 1 WEST ICU 14:27
PROVIDERS: ADMIT Internal Medicine; ATTEND Internal Medicine
PROC: 4A023N7 Measurement of Cardiac Sampling and Pressure, Left Heart, Percutaneous Approach (ICD-10-PCS; principal; 2017-04-11)
PROC: B2111ZZ Fluoroscopy of Multiple Coronary Arteries using Low Osmolar Contrast (ICD-10-PCS; 2017-04-11)
PROC: B2151ZZ Fluoroscopy of Left Heart using Low Osmolar Contrast (ICD-10-PCS; 2017-04-11)
DX: I47.2 Ventricular tachycardia (principal); I21.4 Non-ST elevation (NSTEMI) myocardial infarction; R57.9 Shock, unspecified; I49.01 Ventricular fibrillation; I13.0 Hypertensive heart and chronic kidney disease with heart failure and stage 1 through stage 4 chronic kidney disease, or unspecified chronic kidney disease; I50.22 Chronic systolic (congestive) heart failure; E78.00 Pure hypercholesterolemia, unspecified; N18.3 Chronic kidney disease, stage 3 (moderate); E78.5 Hyperlipidemia, unspecified; I25.10 Atherosclerotic heart disease of native coronary artery without angina pectoris; I25.5 Ischemic cardiomyopathy; I48.91 Unspecified atrial fibrillation; I71.2 Thoracic aortic aneurysm, without rupture; I71.9 Aortic aneurysm of unspecified site, without rupture; Z79.01 Long term (current) use of anticoagulants; Z95.1 Presence of aortocoronary bypass graft; Z95.810 Presence of automatic (implantable) cardiac defibrillator; Z90.89 Acquired absence of other organs
CPT/HCPCS: 36415; 71010; 80047; 80048; 80053; 80076; 82550; 83735; 83880; 84484; 85025; 85610; 85730; 93005; 93459; 99152; 99153; C1769; C1892; J0282; J1644; J2250; J2405; J3010; J3490; J2001

== ENCOUNTER → 2018-04-24 | Outpatient (CLI) | payer BC ==
[2017-04-11 17:00] VITALS: BP 105/81
[~2018-04-24] MED LIST changes: -AMIO200T2 PO; +AMIO200T4 PO; +CARV12.511 PO; -CARV12.52 PO; +CARV3.1210 PO; -LOSA25TA4 PO; +LOSA25TA54 PO; +MEXI150C PO; +MULT-246 PO; -OXYC-323 PO; +OXYC1TAB15 PO; -SPIR25TA3 PO; +SPIR25TA5 PO; +WARF3TAB50 PO; +WARF7.5T45 PO; -WARF7.5T6 PO
--- NOTE | 2018-04-24 16:38 | RAD ---
CHEST PA LATERAL Clinical indications: Productive COUGH COMPARISON: April 10, 2017. Findings: No acute lung infiltrate or pleural effusion or pulmonary edema or lung mass or pneumothorax is seen. 3-lead pacemaker is again evident. Sternotomy is again evident. The heart size, pulmonary vasculature, mediastinum and both deo are stable. The osseous structures appear intact. Impression: No acute radiographic abnormality is seen. Electronically signed by: Eusebio Chery MD (04/24/2018 4:34 PM) [place] [id number]
== END | disposition home or self-care (01) ==
LOC: RAD 11:30
PROVIDERS: ATTEND Family Medicine
DX: R05 Cough (principal); I50.9 Heart failure, unspecified
CPT/HCPCS: 71046

== ENCOUNTER → 2021-07-10 | Day surgery (SDC) | payer MEDICARE ==
[~2021-07-10] VITALS: Ht 167.6 cm; Wt 101.0 kg
[~2021-07-10] MED LIST changes: -AMIO200T4 PO; +AMIO200T53 PO; +APIX5TAB PO; +ATOR40TA59 PO; +CARV6.2511 PO; +EMPA25TA3 PO; +IV RINGERS,LACTATED 1000ML 1,000 ML IV SCH; +SACU1TAB4 PO; +SIMV40TA18 PO; -SIMV40TA3 PO
[2021-07-10 13:35] VITALS: BP 93/50
--- NOTE | 2021-07-10 14:30 | PDOC4 ---
PROCEDURE Procedure Colon/snare polypectomy. Indication: Screen/positive Cologuard. Meds: per anesthesia. Findings: OLIVE normal. --'Scope advanced to cecum. Prep adequate. Mucosa normal. No diverticula seen. 15mm polyp, proximal ascending colon, removed with snare and one clip placed as bleeding prophylaxis. Lipoma at IC valve. Internal hemorrhoids on retroflex. Amber. well. IMP: Polyp, removed. Internal hemorrhoids. Lipoma REC: Await path. Hold ASA and Eliquis for a week. Resume other meds, diet. F/u with me in 2 weeks. Suspect will merit repeat exam in 5 years. JV PAIGE MD Jul 10, 2021 14:30
[2021-07-10 15:00] VITALS: BP 110/65
--- NOTE | 2021-07-12 18:08 | PATHOLOGY ---
[facility] Accession Number: [id number] . 01 Material submitted: . colon - PROXIMAL ASCENDING COLON POLYP. Modifiers: proximal, ascending . 01 Clinical history: . COLONOSCOPY . 02 Diagnosis: Colon polypectomy, proximal ascending colon: - Tubulovillous adenoma, predominantly tubular. (SARMAD:erika; 07/12/2021) MBR 07/12/2021 0954 Local . 02 Comment: There is no high-grade dysplasia or evidence of malignancy. (JPM:erika; 07/12/2021) . 02 Electronically signed: . Oscar Martinez MD, Pathologist NPI- [id number] . 01 Gross description: . The specimen is received in formalin, labeled "Jorge Lim, proximal ascending colon polyp". Received is a single segment of red-cassidy polypoid tissue measuring 1.5 x 1.5 x 1.2 cm. The surgical margin is inked. The specimen is serially sectioned into 4 pieces and entirely submitted in cassette A1. ([facility]; 07/10/2021) NRI/NRI 07/10/2021 1649 Local . 02 Pathologist provided ICD-10: D12.2 . 02 CPT . 508004 Specimen Comment: A courtesy copy of this report has been sent to [phone], [phone]- Specimen Comment: [id number] Specimen Comment: Report sent to / DR HERNANDES Specimen Comment: A duplicate report has been generated due to demographic updates. Performed at: 01 [facility] [address], [place], [place] [id number] MD Juan R Chavez MD Phone: [phone] Performed at: 02 [facility] [address] [place], [place] [id number] MD Oscar Martinez MD Phone: [phone]
== END | disposition home or self-care (01) ==
LOC: ENDOS 13:00
PROVIDERS: ATTEND Internal Medicine Gastroenterology
DX: R19.5 Other fecal abnormalities (principal); K64.0 First degree hemorrhoids; D12.2 Benign neoplasm of ascending colon; K63.89 Other specified diseases of intestine; I10 Essential (primary) hypertension; E78.00 Pure hypercholesterolemia, unspecified; E66.9 Obesity, unspecified; Z90.49 Acquired absence of other specified parts of digestive tract; Z98.890 Other specified postprocedural states; Z79.899 Other long term (current) drug therapy
CPT/HCPCS: 45380; 45382; 45384; 45385; 88305